=== PATIENT | female | born 1945 | race Caucasian/White ===

== ENCOUNTER → 2016-11-28 | Outpatient (CLI) | payer MEDICARE ==
--- NOTE | 2016-11-30 10:05 | MM ---
Reason for exam: screening (asymptomatic). Last mammogram was performed 1 year and 3 months ago. History: Patient is postmenopausal. Family history of breast cancer in aunt at age 50. Physical Findings: A clinical breast exam by your physician is recommended on an annual basis and results should be correlated with mammographic findings. MG 3D Screening Mammo W/Cad Bilateral CC and MLO view(s) were taken. Prior study comparison: September 03, 2015, bilateral MG 3d screening mammo w/cad. July 13, 2014, bilateral MG screening mammo w CAD. May 30, 2013, bilateral digital screening mammo w/CAD. There are scattered fibroglandular densities. No significant changes when compared with prior studies. ASSESSMENT: Benign, BI-RAD 2 RECOMMENDATION: Routine screening mammogram of both breasts in 1 year.
== END | disposition home or self-care (01) ==
LOC: RADMAMWWP 10:03
PROVIDERS: ATTEND Internal Medicine
DX: Z12.31 Encounter for screening mammogram for malignant neoplasm of breast (principal)
CPT/HCPCS: 77063; G0202

== ENCOUNTER → 2016-11-28 | Outpatient (CLI) | payer MEDICARE ==
[2016-11-28 10:56] LABS: CH 28.5; CHCM 31.6; HCT 39.4 % (34.0-46.0); HDW 2.43; HGB 12.4 gm/dL (11.4-16.0); MCH 28.4 pg (25.0-35.0); MCHC 31.4 g/dL (31.0-37.0); MCV 90.4 fL (80.0-100.0); Mean Platelet Volume 7.2; RBC 4.36 m/uL (3.80-5.40); RDW 14.5 % (11.5-15.5); WBC 4.5 k/uL (3.8-10.6)
[2016-11-28 11:19] LABS: Anion Gap 11 mmol/L; Blood Urea Nitrogen 16 mg/dL (7-17); Calcium 9.1 mg/dL (8.4-10.2); Carbon Dioxide 28 mmol/L (22-30); Chloride 103 mmol/L (98-107); Glucose 91 mg/dL (74-99); Non-African American GFR(MDRD) >60 (>60 ml/min/1.73 sqM); Sodium 142 mmol/L (137-145)
== END | disposition home or self-care (01) ==
LOC: LABWHC1 10:22
PROVIDERS: ATTEND Internal Medicine Cardiovascular Disease
DX: E78.00 Pure hypercholesterolemia, unspecified (principal); E03.9 Hypothyroidism, unspecified; R60.0 Localized edema; R53.83 Other fatigue
CPT/HCPCS: 36415; 80048; 84436; 84439; 84443; 84481; 85027

== ENCOUNTER → 2017-04-10 | Outpatient (CLI) | payer MEDICARE ==
[2017-04-10 12:54] LABS: ALT 31 U/L (9-52); AST 21 U/L (14-36); Alkaline Phosphatase 59 U/L (38-126); Anion Gap 9 mmol/L; Blood Urea Nitrogen 17 mg/dL (7-17); Calcium 9.7 mg/dL (8.4-10.2); Carbon Dioxide 31 mmol/L (22-30); Chloride 101 mmol/L (98-107); Glucose 92 mg/dL (74-99); Sodium 141 mmol/L (137-145); Total Bilirubin 0.6 mg/dL (0.2-1.3); Total Protein 6.4 g/dL (6.3-8.2)
[2017-04-10 12:57] LABS: HCT 39.8 % (34.0-46.0); HGB 12.5 gm/dL (11.4-16.0); MCH 28.5 pg (25.0-35.0); MCHC 31.5 g/dL (31.0-37.0); MCV 90.3 fL (80.0-100.0); Mean Platelet Volume 6.7; Platelet Count 277 k/uL (150-450); WBC 4.9 k/uL (3.8-10.6)
== END | disposition home or self-care (01) ==
LOC: LABWHC1 11:57
PROVIDERS: ATTEND Internal Medicine Cardiovascular Disease
DX: I11.0 Hypertensive heart disease with heart failure (principal); I50.22 Chronic systolic (congestive) heart failure; I48.2 Chronic atrial fibrillation; I48.92 Unspecified atrial flutter; R00.2 Palpitations; R53.83 Other fatigue; R60.0 Localized edema; R06.02 Shortness of breath
CPT/HCPCS: 36415; 80053; 84436; 84443; 84479; 85027

== ENCOUNTER → 2017-08-09 | Outpatient (CLI) | payer MEDICARE ==
[2017-08-09 09:54] LABS: HCT 35.8 % (34.0-46.0); HGB 11.7 gm/dL (11.4-16.0); MCH 28.9 pg (25.0-35.0); MCHC 32.8 g/dL (31.0-37.0); Platelet Count 244 k/uL (150-450); RBC 4.06 m/uL (3.80-5.40); RDW 13.2 % (11.5-15.5); WBC 5.6 k/uL (3.8-10.6)
[2017-08-09 10:04] LABS: INR 2.1 (<1.2); Partial Thromboplastin Time 28.7 sec (22.0-30.0); Prothrombin Time 19.3 sec (9.0-12.0)
[2017-08-09 10:40] LABS: Calcium 9.3 mg/dL (8.4-10.2); Potassium 3.8 mmol/L (3.5-5.1)
== END | disposition home or self-care (01) ==
LOC: LABWHC1 09:17
PROVIDERS: ATTEND Internal Medicine Cardiovascular Disease
DX: I48.0 Paroxysmal atrial fibrillation (principal); I50.22 Chronic systolic (congestive) heart failure; E78.00 Pure hypercholesterolemia, unspecified
CPT/HCPCS: 36415; 80048; 85027; 85610; 85730

== ENCOUNTER → 2017-12-03 | Outpatient (CLI) | payer MEDICARE ==
--- NOTE | 2017-12-05 10:13 | MM ---
Reason for exam: screening (asymptomatic). Last mammogram was performed 1 year ago. History: Patient is postmenopausal. Family history of breast cancer in aunt at age 50. Physical Findings: A clinical breast exam by your physician is recommended on an annual basis and results should be correlated with mammographic findings. MG 3D Screening Mammo W/Cad Bilateral CC and MLO view(s) were taken. Prior study comparison: November 28, 2016, bilateral MG 3d screening mammo w/cad. September 03, 2015, bilateral MG 3d screening mammo w/cad. There are scattered fibroglandular densities. Benign bilateral secretory calcifications. No significant changes when compared with prior studies. ASSESSMENT: Benign, BI-RAD 2 RECOMMENDATION: Routine screening mammogram of both breasts in 1 year.
== END | disposition home or self-care (01) ==
LOC: RADMAMWWP 13:00
PROVIDERS: ATTEND Internal Medicine
DX: Z12.31 Encounter for screening mammogram for malignant neoplasm of breast (principal)
CPT/HCPCS: 77063; 77067

== ENCOUNTER → 2018-06-25 | Outpatient (CLI) | payer MEDICARE ==
[2018-06-25 17:06] LABS: Albumin 4.7 g/dL (3.80-4.90); Albumin/Globulin Ratio 2.35 (1.60-3.17); Anion Gap 9.2 mmol/L (4.00-12.00); Calcium 9.8 mg/dL (8.7-10.3); Carbon Dioxide 28.8 mmol/L (21.6-31.8); Potassium 4.4 mmol/L (3.5-5.5); Total Bilirubin 0.5 mg/dL (0.3-1.2); Total Protein 6.7 g/dL (6.2-8.2)
== END | disposition home or self-care (01) ==
LOC: LABWHC1 11:13
PROVIDERS: ATTEND Internal Medicine Interventional Cardiology
DX: E78.00 Pure hypercholesterolemia, unspecified (principal); R60.0 Localized edema
CPT/HCPCS: 36415; 80053; 80061

== ENCOUNTER → 2018-10-22 | Outpatient (CLI) | payer MEDICARE ==
[2018-10-22 11:13] LABS: HCT 32.1 % (34.0-46.0); HGB 9.8 gm/dL (11.4-16.0); Hypochromasia Marked; MCHC 30.6 g/dL (31.0-37.0); MCV 84.7 fL (80.0-100.0); Mean Platelet Volume 7.5; Platelet Count 267 k/uL (150-450); RBC 3.78 m/uL (3.80-5.40); RDW 14.7 % (11.5-15.5); WBC 5.2 k/uL (3.8-10.6)
[2018-10-22 17:22] LABS: Anion Gap 10.4 mmol/L (4.00-12.00); BUN/Creat Ratio 12.5 Ratio (12.00-20.00); Calcium 8.7 mg/dL (8.7-10.3); Carbon Dioxide 25.6 mmol/L (21.6-31.8); Potassium 4.3 mmol/L (3.5-5.5)
== END | disposition home or self-care (01) ==
LOC: LABWHC1 10:35
PROVIDERS: ATTEND Internal Medicine Cardiovascular Disease
DX: I11.0 Hypertensive heart disease with heart failure (principal); I50.9 Heart failure, unspecified; I48.0 Paroxysmal atrial fibrillation; E78.00 Pure hypercholesterolemia, unspecified; I42.8 Other cardiomyopathies; R06.02 Shortness of breath
CPT/HCPCS: 36415; 80048; 83880; 85027

== ENCOUNTER → 2020-06-29 | Outpatient (CLI) | payer MEDICARE ==
--- NOTE | 2020-06-30 13:43 | MM ---
Reason for exam: screening (asymptomatic). Last mammogram was performed 2 years and 7 months ago. History: Patient is postmenopausal. Family history of breast cancer in aunt at age 50. Physical Findings: A clinical breast exam by your physician is recommended on an annual basis and results should be correlated with mammographic findings. MG 3D Screening Mammo W/Cad Bilateral CC and MLO view(s) were taken. Prior study comparison: December 03, 2017, bilateral MG 3d screening mammo w/cad. November 28, 2016, bilateral MG 3d screening mammo w/cad. There are scattered fibroglandular densities. Loop recorder left breast. No significant changes when compared with prior studies. ASSESSMENT: Benign, BI-RAD 2 RECOMMENDATION: Routine screening mammogram of both breasts in 1 year.
== END ==
LOC: RADMAMWWP 15:22
PROVIDERS: ATTEND Internal Medicine
DX: Z12.31 Encounter for screening mammogram for malignant neoplasm of breast (principal); Z78.0 Asymptomatic menopausal state; Z80.3 Family history of malignant neoplasm of breast
CPT/HCPCS: 77063; 77067

== ENCOUNTER → 2020-07-23 | Outpatient (CLI) | payer MEDICARE ==
--- NOTE | 2020-07-23 16:18 | CT ---
EXAMINATION TYPE: CT soft tissue neck w con DATE OF EXAM: 07/23/2020 COMPARISON: HISTORY: Left side neck lump CT DLP: 733 mGycm CONTRAST: Patient injected with 100 mL of Isovue 300. TECHNIQUE: Axial images at 3 mm thick sections. Reconstructed images in the coronal plane and sagitt al plane are reviewed. FINDINGS: Limited CT sections are obtained the lung apices. The lung apices appear clear. CT neck: The torus tubarius and fossa of Rosenmuller are normal. Staff Training And Development Manager spaces are normal. Para nasal sinuses and mastoid air cells are clear. Parotid glands appear normal and symmetrical. Submandibular glands, are normal. Parapharyngeal spac es are normal. No suspicious adenopathy is evident. Right internal carotid artery is a medial course into the prevertebral space on the right is causing some displacement of the posterior soft tissues. Tonsillar pillars appear normal The hypopharynx appears within normal limits. Vocal cord level appear symmetrical. Small portion of Thyroid as visualized is normal. Degenerative disc changes are present throughout the cervical spine. Some spondylosis is present. Tem poromandibular junctions appear within normal limits. Remarks lower left neck. This is at the level of the lower sternocleidomastoid muscle. No underlying masses are evident. No suspicious adenopathy is at this level. IMPRESSIONS: 1. No suspicious abnormality to account for palpable area. 2. Incidental note is made of medial course of the right internal carotid artery to nearly the midlin e.
== END | disposition home or self-care (01) ==
LOC: RADCTMAIN 11:58
PROVIDERS: ATTEND Internal Medicine
DX: R22.1 Localized swelling, mass and lump, neck (principal)
CPT/HCPCS: 82565; 84520; 70491; 36415; Q9967

== ENCOUNTER → 2022-03-14 | Outpatient (CLI) | payer MEDICARE ==
--- NOTE | 2022-03-15 10:24 | MM ---
Reason for Exam: Screening (asymptomatic). Last mammogram was performed 1 year(s) and 9 month(s) ago. Patient History: Menarche at age 14. First Full-Term at age 23. Postmenopausal. Maternal aunt had breast cancer, age 50. Risk Values: Jade 5 year model risk: 1.6%. NCI Lifetime model risk: 3.7%. Prior Study Comparison: 11/28/2016 Bilateral Screening Mammogram, [facility]. 12/03/2017 Bilateral Screening Mammogram, [facility]. 06/29/2020 Bilateral Screening Mammogram, [facility]. Tissue Density: There are scattered fibroglandular densities. Findings: Analyzed By CAD. Persistent loop recorder in the posterior left breast. Persistent tiny round and linear calcifications greatest anteriorly in the bilateral breasts and more numerous in the right breast. There is no suspicious new group of microcalcifications or new suspicious mass in either breast. Overall Assessment: Benign, BI-RAD 2 Management: Screening Mammogram of both breasts in 1 year. A clinical breast exam by your physician is recommended on an annual basis and results should be correlated with mammographic findings. Electronically signed and approved by: Ray Giles M.D.
== END | disposition home or self-care (01) ==
LOC: RADMAMWWP 13:28
PROVIDERS: ATTEND Internal Medicine
DX: Z12.31 Encounter for screening mammogram for malignant neoplasm of breast (principal); Z78.0 Asymptomatic menopausal state; Z80.3 Family history of malignant neoplasm of breast
CPT/HCPCS: 77063; 77067

== ENCOUNTER → 2023-08-17 | Outpatient (CLI) | payer MEDICARE ==
[2023-08-17 19:07] LABS: Basophils # (A) 0.04 X 10*3/uL (0.00-0.10); Basophils % (A) 1.1 %; Eosinophils # (A) 0.15 X 10*3/uL (0.04-0.35); Eosinophils % (A) 4.3 %; HCT 29.9 % (37.2-46.3); HGB 8.3 g/dL (12.0-15.0); Lymphocytes % (A) 25.9 %; MCH 21.4 pg (27.0-32.0); MCHC 27.8 g/dL (32.0-37.0); MCV 77.1 FL (80.0-97.0); Mean Platelet Volume 9.2 FL (9.5-12.2); Monocytes # (A) 0.28 X 10*3/uL (0.20-1.00); NRBC Per 100 WBC 0 X 10*3/uL (0.00-0.01); Neutrophils # (A) 2.09 X 10*3/uL (1.80-7.70); Neutrophils % (A) 60.1 %; Platelet Count 310 X 10*3/uL (140-440); RBC 3.88 X 10*6/uL (4.10-5.20); RDW 17.2 % (11.5-14.5); WBC 3.48 X 10*3/uL (4.50-10.00)
[2023-08-17 21:14] LABS: ALT 13 U/L (8-44); AST 20 U/L (13-35); Albumin 4.4 g/dL (3.8-4.9); Albumin/Globulin Ratio 1.91 Ratio (1.60-3.17); Alkaline Phosphatase 56 U/L (41-126); BUN/Creat Ratio 16.78 Ratio (12.00-20.00); Blood Urea Nitrogen 15.1 mg/dL (9.0-27.0); Calcium 9.4 mg/dL (8.7-10.3); Carbon Dioxide 27.3 mmol/L (21.6-31.8); Chloride 99 mmol/L (96-109); Chol/HDL Ratio 1.97 Ratio; Globulin 2.3 g/dL (1.6-3.3); Glucose 93 mg/dL (70-110); LDL Cholesterol,Calculated 66.9 mg/dL (0.0-131.0); Potassium 4.6 mmol/L (3.5-5.5); Sodium 137 mmol/L (135-145); T4, Free (Free Thyroxine) 1.54 ng/dL (0.80-1.80); Total Bilirubin 0.3 mg/dL (0.3-1.2); Total Protein 6.7 g/dL (6.2-8.2); VLDL Calculation 14.34 mg/dL (5.00-40.00)
== END | disposition home or self-care (01) ==
LOC: LABWHC1 11:27
PROVIDERS: ATTEND Internal Medicine Cardiovascular Disease
DX: I48.0 Paroxysmal atrial fibrillation (principal)
CPT/HCPCS: 36415; 80053; 80061; 84439; 84443; 84480; 84481; 85025

== ENCOUNTER → 2024-04-16 | Outpatient (CLI) | payer MEDICARE ==
--- NOTE | 2024-04-16 12:41 | US ---
EXAMINATION TYPE: US kidneys/renal and bladder DATE OF EXAM: 04/16/2024 COMPARISON: NONE CLINICAL INDICATION: Female, 78 years old with history of R31.9 HEMATURIA, UNSPECIFIED; Hematuria TECHNIQUE: Grayscale imaging of the bilateral kidneys and urinary bladder: FINDINGS: EXAM MEASUREMENTS: Right Kidney: 11.6 x 4.7 x 4.0 cm Left Kidney: 11.4 x 4.7 x 5.2 cm Wine Fermenter notes: Exam is slightly limited due to gas. Right Kidney: No hydronephrosis or masses seen Left Kidney: No hydronephrosis or masses seen Bladder: Partially distended bladder shows no gross abnormality. Bilateral Jets seen: Yes IMPRESSION: No hydronephrosis. [facility], Workstation: [email or web address], 04/16/2024 12:39 PM
--- NOTE | 2024-04-16 12:50 | US ---
EXAMINATION TYPE: US pelvis complete transvag DATE OF EXAM: 04/16/2024 COMPARISON: NONE CLINICAL INDICATION: Female, 78 years old with history of R31.9 HEMATURIA, UNSPECIFIED; Possible vagi nal bleeding. Called office, and confirmed they want the pelvis ultrasound due to vaginal bleeding. G 2 P2. TECHNIQUE: Transvaginal (TV) and Transabdominal (TA) . Transabdominal grayscale sonographic images of the pelvis were acquired. Transvaginal sonographic im ages were medically necessary to better assess the following anatomy: ovaries Doppler imaging: Not performed. FINDINGS: Date of LMP: Pt states in her 40s. EXAM MEASUREMENTS: Uterus: 4.0 x 3.1 x 2.4 cm Endometrial Stripe: 0.32 cm Right Ovary: Obscured by bowel gas Left Ovary: Obscured by bowel gas 1. Uterus: Anteverted Heterogeneous. *Subcentimeter anechoic area seen in cervix. There is some heterogeneity in the region of the cervix along with a nabothian cyst measuring up to 6 mm. Punctate myometrial calcification anteriorly. This may reflect underlying small fibroid change. 2. Endometrium: 0.32 cm. Anechoic fluid seen within the uterine cavity measuring 1.0 x 1.3 x 0.5 c m. 3. Right Ovary: Obscured 4. Left Ovary: Obscured 5. Bilateral Adnexa: Appear wnl 6. Posterior cul-de-sac: Prominent vessel noted left adnexa questionable clinical significance IMPRESSION: 1. Endometrial stripe appears relatively thin at 3 mm. However, there is fluid distending the uterine cavity up to 5 mm. Correlate to exclude cervical stenosis. 2. Consider further evaluation with direct inspection/Pap smear given some heterogeneous appearance t o the cervix. 3. Unable to visualize either ovary likely a combination of bowel gas and small postmenopausal size. [facility], , 04/16/2024 12:47 PM
== END | disposition home or self-care (01) ==
LOC: RADUSWWP 11:32
PROVIDERS: ATTEND Internal Medicine
DX: R31.9 Hematuria, unspecified (principal); N93.9 Abnormal uterine and vaginal bleeding, unspecified
CPT/HCPCS: 76770; 76830; 76856

== ENCOUNTER → 2024-10-09 | Outpatient (CLI) | payer MEDICARE ==
[2024-10-09 13:37] VITALS: PULSE 70; RESP 16; TEMP 97.9
[2024-10-09 13:39] VITALS: BP 137/76
--- NOTE | 2024-10-09 14:02 | P.SLEEP ---
History of Present Illness DATE: 10/09/2024 CONSULTATION/NEW PATIENT EVALUATION HISTORY OF PRESENT ILLNESS/SLEEP-WAKE EVALUATION: 79-year-old lady had been ev aluated in the sleep center for possible obstructive sleep apnea hypopnea syndrome. Patient has history of obstructive sleep apnea diagnosed about 15 years ago in another institution she was on treatment with CPAP but stopped therapy for different reason about 10 years ago. SLEEP SCHEDULE: Usually sleep schedule from 1112 until 9 AM 7 days a week. FALLING ASLEEP: Patient has difficulties with falling asleep, has TV set in bedroom. DURING SLEEP: Patient sleeps on the back and side position with loud snoring and witnessed episodes of stop breathing during the sleep. Positive history of res tless leg symptoms, sweating, dry mouth, palpitations, nocturia. No history of hypnogogical hallucinations, sleep paralysis, or cataplexy. DURING THE DAY/WAKE STATE: In the morning patient wake up tired, has difficulties to pay attention, has problems with memory, concentration, depression. [place] sleepiness scale is increased to 13. Patient takes nap at 3:30 PM. PAST MEDICAL HISTORY: Atrial flutter, hypertension, dyslipidemia, COPD, hypothyroidism. []. PAST SURGICAL HISTORY: Cardiac ablation. MEDICATIONS: Levothyroxine 150 mcg once a day, propafenone 150 mg once a day, pantoprazole 40 mg once a day, ropinirole 2 mg once a day, warfarin 2.5 mg once a day, simvastatin 40 mg once a day, gabapentin 300 mg once a day, Symbicort, Ventolin. SOCIAL HISTORY: Please see below. FAMILY HISTORY: Please see below. REVIEW OF SYSTEMS: Snoring, sleepiness. No fevers. No double vision. No recent chest pain. No shortness of breath. No abdominal pain. No bleeding episodes. No blood in urine. No seizure episodes. PHYSICAL EXAMINATION: GENERAL: A pleasant patient without any distress. VITAL SIGNS: Please see below, weight 166 pounds, BMI 31.3. HEENT: PERRLA, EOMI. Evaluation of oropharynx showed tongue protrudes midline, low position of soft palate Mallampati 3. NECK: Supple. No JVD. Thyroid is not palpable. 14.5 inches in circumference. LUNGS: Clear to percussion and to auscultation. Good air exchange. No wheezing or rhonchi. HEART: S1, S2 irregular. ABDOMEN: Soft and nontender. Bowel sounds are present. No organomegaly appreciated. EXTREMITIES: No clubbing or cyanosis. ASSOCIATE JAVA DEVELOPER: Awake, alert, and oriented x3. Cranial nerves 2 to 7 intact. There is no fasciculation or atrophy noted. No focal deficits observed. ASSESSMENT: 1. Loud snoring, witnessed episodes of stop breathing during the sleep, low position of soft palate Mallampati 3, history of obstructive sleep apnea in the past, sleepiness with [place] Sleepiness Scale increased to 13. Obstructive sleep apnea hypopnea syndrome. 2. Hypertension. 3. Atrial flutter, status post cardiac ablation. 4. COPD. 5. Dyslipidemia. 6 . Hypothyroidism. PLAN: 1. Polysomnography for evaluation of patient's breathing during sleep. 2. Following plan after reading sleep study. 3. Preferable position during sleep on the side. 4. No driving if patient feels any sleepiness. Patient is aware of civil and criminal liability for unsafe driving. 5. Sleep hygiene with regular sleep time for at least 7.5-8 hours. 6. Watching weight. Thank you very much for referring this patient for consultation. Sincerely, Pankaj Sandhu MD, PhD, FAASM. Diplomat of [place] [employer], Sleep Medicine Board by [place] [employer] [place] [employer] [facility] [place] cc: Luke Srinivasan MD, Homar Castro MD Past Medical History Past Medical History: Atrial Fibrillation, COPD, GERD/Reflux, Hyperlipidemia, Sleep Apnea/CPAP/BIPAP, Thyroid Disorder Additional Past Medical History / Comment(s): Restless leg syndrome. RESPIRATORY INFECTION ON AND OFF SINCE GIVING- 3 COURSES OF ANTIBIOTICS AND STEROIDS History of Any Multi-Drug Resistant Organisms: None Reported Past Surgical History: Cardiac Ablation, Heart Catheterization, Hernia Repair, Tonsillectomy Additional Past Surgical History / Comment(s): colonoscopy Past Anesthesia/Blood Transfusion Reactions: No Reported Reaction Past Psychological History: No Psychological Hx Reported Smoking Status: Former smoker Past Alcohol Use History: Rare Additional Past Alcohol Use History / Comment(s): quit smokng 1987 Past Drug Use History: None Reported - Past Family History Father Family Medical History: Cancer, Coronary Artery Disease (CAD) Mother Family Medical History: Cancer, Coronary Artery Disease (CAD) Additional Family Medical History / Comment(s): lung problems Medications and Allergies Home Medications Medication Instructions Recorded Confirmed Type Baclofen [Lioresal] 20 mg PO HS 06/02/14 07/09/15 History Budesonide-Formot 160-4.5 Mcg 2 puff INHALATION RT-BID 06/02/14 07/09/15 History [Symbicort 160-4.5 Mcg Inhaler] Cholecalciferol [Vitamin D3 (25 2,000 unit PO DAILY 06/02/14 07/09/15 History Mcg = 1000 Iu)] Ferrous Sulfate [Iron (65 MG 325 mg PO DAILY 06/02/14 07/09/15 History Elemental)] Gabapentin [Neurontin] 100 mg PO HS 06/02/14 07/09/15 History Levothyroxine Sodium [Synthroid] 137 mcg PO DAILY 06/02/14 07/09/15 History Omeprazole [PriLOSEC] 20 mg PO AC-BRKFST 06/02/14 07/09/15 History Simvastatin [Zocor] 40 mg PO HS 06/02/14 07/09/15 History rOPINIRole HCL [Requip] 1 mg PO TID@1100,2100,2200 06/02/14 07/09/15 History Spironolactone [Aldactone] 12.5 mg PO DAILY #30 tab 06/17/15 07/09/15 Rx Ipratropium Nebulized [Atrovent 0.5 mg INHALATION RT-QID@1200,0000 07/09/15 07/09/15 History Nebulized 0.2 MG/ML] Warfarin Sodium [Coumadin] 2 mg PO MOWEFR@1800 07/09/15 07/09/15 History Warfarin Sodium [Coumadin] 4 mg PO SUTUTHSA@1800 07/09/15 07/09/15 History levalbuterol HCL [Xopenex] 1.25 mg INHALATION RT-QID 07/09/15 07/09/15 History Amiodarone [Cordarone] 200 mg PO TID #90 tab 07/16/15 Rx Furosemide [Lasix] 20 mg PO DAILY #30 tab 07/16/15 Rx Metoprolol Tartrate [Lopressor] 50 mg PO TID #90 tab 07/16/15 Rx Verapamil [Isoptin] 120 mg PO TID #90 tab 07/16/15 Rx predniSONE 10 mg PO DIRECTED #20 tab 07/16/15 Rx Allergies Allergy/AdvReac Type Severity Reaction Status Date / Time No Known Allergies Allergy Verified 07/09/15 13:52 Physical Exam Vitals: Vital Signs Temp Pulse Resp BP Pulse Ox 10/09/24 13:37 97.9 F 70 16 137/76 97 10/09/24 13:33 97.9 F 70 16 Intake and Output 10/08/24 10/09/24 10/09/24 22:59 06:59 14:59 Other: Weight 75.296 kg Sleep Note - Sleep Data ESS Total: 13 - Sleep Note Sleep Note: Temperature: 97.9 F Pulse Rate: 70 Respiratory Rate: 16 Blood Pressure: 137/76 SpO2: 97 Height: 5 ft 1 in Weight: 75.296 kg BMI: Neck Circumference: 14.5
== END ==
LOC: 3 N SLEEP 13:07
PROVIDERS: ATTEND Internal Medicine
DX: G47.33 Obstructive sleep apnea (adult) (pediatric) (principal); I10 Essential (primary) hypertension; I48.92 Unspecified atrial flutter; J44.9 Chronic obstructive pulmonary disease, unspecified; E78.5 Hyperlipidemia, unspecified; E03.9 Hypothyroidism, unspecified; Z98.890 Other specified postprocedural states; Z87.891 Personal history of nicotine dependence
CPT/HCPCS: 99211

== ENCOUNTER 2024-10-27 17:38 | Observation (INO) | payer MEDICARE ==
--- NOTE | 2024-10-27 18:18 | ED ---
Recheck HPI - General Chief Complaint: Recheck/Abnormal Lab/Rx Stated Complaint: Infusion Time Seen by Provider: 10/27/24 18:16 Source: patient, RN notes reviewed, old records reviewed Mode of arrival: ambulatory Limitations: no limitations - History of Present Illness Initial Comments: This is a 79-year-old female who presents for low hemoglobin outpatient lab testing showing low hemoglobin with history of transfusion in the past history of low hemoglobin in the past. Patient denies any nausea vomiting denies vaginal bleeding and denies blood in the stool MD Complaint: abnormal lab (Low hemoglobin) -: days(s) Returns Today for: Called Because of Abnormal Lab/Test Context: called for abnormal lab result Associated Symptoms: none Treatments Prior to Arrival: other - Related Data Home Medications Medication Instructions Recorded Confirmed Budesonide-Formot 160-4.5 Mcg 2 puff INHALATION RT-BID 06/02/14 10/27/24 [Symbicort 160-4.5 Mcg Inhaler] Simvastatin [Zocor] 40 mg PO HS 06/02/14 10/27/24 Albuterol Inhaler [Ventolin Hfa 2 puff INHALATION RT-Q4H PRN 10/27/24 10/27/24 Inhaler] Bumetanide [BUMEX] 2 mg PO DAILY 10/27/24 10/29/24 Gabapentin [Neurontin] 300 mg PO HS 10/27/24 10/27/24 Pantoprazole [Protonix] 40 mg PO DAILY 10/27/24 10/27/24 Propafenone HCl [Rythmol ER] 325 mg PO Q12H 10/27/24 10/27/24 Spironolactone [Aldactone] 25 mg PO DAILY 10/27/24 10/27/24 Warfarin [Coumadin] 2.5 mg PO HS 10/27/24 10/27/24 rOPINIRole HCL [Requip] 2 mg PO TID 10/27/24 10/27/24 Levothyroxine Sodium [Synthroid] 175 mcg PO DAILY 10/29/24 10/29/24 Allergies Allergy/AdvReac Type Severity Reaction Status Date / Time No Known Allergies Allergy Verified 07/09/15 13:52 Review of Systems ROS Statement: Those systems with pertinent positive or pertinent negative responses have been documented in the HPI. ROS Other: All systems not noted in ROS Statement are negative. Past Medical History Past Medical History: Atrial Fibrillation, COPD, GERD/Reflux, Hyperlipidemia, Sleep Apnea/CPAP/BIPAP, Thyroid Disorder Additional Past Medical History / Comment(s): Restless leg syndrome. RESPIRATORY INFECTION ON AND OFF SINCE THANKSGI- 3 COURSES OF ANTIBIOTICS AND STEROIDS History of Any Multi-Drug Resistant Organisms: None Reported Past Surgical History: Cardiac Ablation, Heart Catheterization, Hernia Repair, Tonsillectomy Additional Past Surgical History / Comment(s): colonoscopy Past Anesthesia/Blood Transfusion Reactions: No Reported Reaction Past Psychological History: No Psychological Hx Reported Smoking Status: Former smoker Past Alcohol Use History: Rare Past Drug Use History: None Reported - Past Family History Father Family Medical History: Cancer, Coronary Artery Disease (CAD) Mother Family Medical History: Cancer, Coronary Artery Disease (CAD) Additional Family Medical History / Comment(s): lung problems General Exam Limitations: no limitations General appearance: alert, in no apparent distress Head exam: Present: atraumatic, normocephalic, normal inspection Eye exam: Present: normal appearance, PERRL, EOMI. Absent: scleral icterus, conjunctival injection, periorbital swelling ENT exam: Present: normal exam, mucous membranes moist Neck exam: Present: normal inspection. Absent: tenderness, meningismus, lymphadenopathy Respiratory exam: Present: normal lung sounds bilaterally. Absent: respiratory distress, wheezes, rales, rhonchi, stridor Cardiovascular Exam: Present: regular rate, normal rhythm, normal heart sounds. Absent: systolic murmur, diastolic murmur, rubs, gallop, clicks GI/Abdominal exam: Present: soft, normal bowel sounds. Absent: distended, tenderness, guarding, rebound, rigid Extremities exam: Present: normal inspection, full ROM, normal capillary refill. Absent: tenderness, pedal edema, joint swelling, calf tenderness Back exam: Present: normal inspection Neurological exam: Present: alert, oriented X3, CN II-XII intact Psychiatric exam: Present: normal affect, normal mood Skin exam: Present: warm, dry, intact, normal color. Absent: rash Course Vital Signs 10/27/24 10/27/24 10/27/24 17:53 18:57 20:14 Temperature 98.2 F Pulse Rate 84 69 65 Respiratory 18 20 18 Rate Blood Pressure 121/70 125/68 143/86 O2 Sat by Pulse 97 96 96 Oximetry 0710/27/24 10/27/24 20:28 20:38 20:58 Temperature 97.9 F 98.0 F 98.2 F Pulse Rate 70 78 80 Respiratory 16 16 18 Rate Blood Pressure 140/76 142/72 150/90 O2 Sat by Pulse 95 93 L 93 L Oximetry 10/27/24 10/27/24 10/27/24 22:26 23:12 23:22 Temperature 98.6 F 98.6 F Pulse Rate 80 71 74 Respiratory 16 16 18 Rate Blood Pressure 150/87 134/73 126/91 O2 Sat by Pulse 97 91 L 99 Oximetry 10/27/24 10/27/24 10/28/24 23:32 23:52 01:39 Temperature 98.2 F 98.3 F 98.4 F Pulse Rate 59 L 65 70 Respiratory 16 16 16 Rate Blood Pressure 140/78 137/79 132/86 O2 Sat by Pulse 93 L 93 L 91 L Oximetry 10/28/24 10/28/24 03:20 06:08 Temperature 98.4 F 97.8 F Pulse Rate 71 76 Respiratory 16 16 Rate Blood Pressure 152/78 138/78 O2 Sat by Pulse 96 95 Oximetry - Reevaluation(s) Reevaluation #1: 10/27/24 19:11 Medical records reviewed Reevaluation #2: 10/27/24 19:12 Patient has no acute symptoms Reevaluation #3: 10/27/24 19:12 Patient informed of results questions answered Reevaluation #4: Was pt. sent in by a medical professional or institution (, PA, WORKCELL OPERATOR, urgent care, hospital, or halfway...) When possible be specific @ -no Did you speak to anyone other than the patient for history (EMS, parent, family, police, friend...)? What history was obtained from this source @ -no Did you review nursing and triage notes (agree or disagree)? Why? @ -agree Are old charts reviewed (outside hosp., previous admission, EMS record, old EKG, old radiological studies, urgent care reports/EKG's, halfway records)? Report findings @ -yes Differential Diagnosis (chest pain, altered mental status, abdominal pain women, abdominal pain men, vaginal bleeding, weakness, fever, dyspnea, syncope, he adache, dizziness, GI bleed, back pain, seizure, CVA, palpatations, mental health, musculoskeletal)? @ -prior EKG interpreted by me (3pts min.). @ -no X-rays interpreted by me (1pt min.). @ -no CT interpreted by me (1pt min.). @ -no U/S interpreted by me (1pt. min.). @ -no What testing was considered but not performed or refused? (CT, X-rays, U/S, labs)? Why? @ -none What meds were considered but not given or refused? Why? @ -none Did you discuss the management of the patient with other professionals (professionals i.e. , PA, WORKCELL OPERATOR, lab, RT, psych nurse, executive secretary social welfare, track repair person, teacher, information management officer, employment evaluator/case manager)? Give summary @ -no Was smoking cessation discussed for >3mins.? @ -no Was critical care preformed (if so, how long)? @ -no Were there social determinants of health that impacted care today? How? (Homelessness, low income, unemployed, alcoholism, drug addiction, tra nsportation, low edu. Level, literacy, decrease access to med. care, senior care, rehab)? @ -none Was there de-escalation of care discussed even if they declined (Discuss DNR or withdrawal of care, Hospice)? DNR status @ -no What co-morbidities impacted this encounter? (DM, HTN, Smoking, COPD, CAD, Cance r, CVA, ARF, Chemo, Hep., AIDS, mental health diagnosis, sleep apnea, morbid obesity)? @ -none Was patient admitted / discharged? Hospital course, mention meds given and route, prescriptions, significant lab abnormalities, going to OR and other pertinent info. @ - 79 female with history of anemia known history of anemia no active GI bleed, patient will admit for transfusion symptoms or weakness Admitted Undiagnosed new problem with uncertain prognosis? @ -no Drug Therapy requiring intensive monitoring for toxicity (Heparin, Nitro, Insulin, Cardizem)? @ -no Were any procedures done? @ -no Diagnosis/symptom? @ -Anemia Acute, or Chronic, or Acute on Chronic? @ -Acute Uncomplicated (without systemic symptoms) or Complicated (systemic symptoms)? @ -Complicated Side effects of treatment? @ -no Exacerbation, Progression, or Severe Exacerbation? @ -exacerbation Poses a threat to life or bodily function? How? (Chest pain, [place], [place], pneumonia, PE, COPD, DKA, ARF, appy, cholecystitis, CVA, Diverticulitis, Homicidal, Suicidal, threat to staff... and all critical care pts) @ -yes severe anemia extremes of age - Consultations Consultation #1: Spoke with Dr. Srinivasan who agrees to admit this patient Medical Decision Making - Medical Decision Making 79 female with history of anemia known history of anemia no active GI bleed, patient will admit for transfusion symptoms or weakness - Lab Data Result diagrams: 10/29/24 06:44 10/29/24 06:44 Lab Results 10/27/24 10/27/24 10/27/24 Range/Units 11:02 18:00 18:05 WBC (4.50-10.00) 10*3/uL RBC (4.10-5.20) 10*6/uL Hgb (12.0-15.0) g/dL Hct (37.2-46.3) % MCV (80.0-97.0) fL MCH (27.0-32.0) pg MCHC (32.0-37.0) g/dL Plt Count (140-440) 10*3/uL MPV (9.5-12.2) fL Immature Gran % (Auto) % Neutrophils % % Lymphocytes % % Monocytes % % Eosinophils % % Basophils % % Immature Gran # (0.00-0.04) 10*3/uL Neutrophils # (1.80-7.70) 10*3/uL Lymphocytes # (0.90-5.00) 10*3/uL Monocytes # (0.20-1.00) 10*3/uL Eosinophils # (0.04-0.35) 10*3/uL Basophils # (0.00-0.10) 10*3/uL PT (10.0-12.5) sec INR (<1.2) Sodium (137-145) mmol/L Potassium (3.5-5.1) mmol/L Chloride (98-107) mmol/L Carbon Dioxide (22-30) mmol/L Anion Gap mmol/L BUN (7-17) mg/dL Creatinine (0.52-1.04) mg/dL Est GFR (CKD-EPI)AfAm (>60 ml/min/1.73 sqM) Est GFR (CKD-EPI)NonAf (>60 ml/min/1.73 sqM) Glucose (74-99) mg/dL Calcium (8.4-10.2) mg/dL Phosphorus (2.5-4.5) mg/dL Magnesium (1.6-2.3) mg/dL Iron 121 (50-170) UG/DL TIBC 484 H (228-460) UG/DL % Saturation 25.00 (12.00-45.00) Transferrin 346.0 (204.0-354.0) mg/dL Ferritin 10.8 (10.0-291.0) ng/mL Total Bilirubin (0.2-1.3) mg/dL AST (14-36) U/L ALT (4-34) U/L Alkaline Phosphatase (38-126) U/L Troponin I (0.000-0.034) ng/mL Total Protein (6.3-8.2) g/dL Albumin (3.5-5.0) g/dL Vitamin B12 387.0 (200.0-944.0) pg/mL Blood Type B Positive Blood Type Confirm B Positive Blood Type Recheck No Previous Record Bld Type Recheck Status CABO Indicated Antibody Screen NEGATIVE Crossmatch See Detail Spec Expiration Date 10/30/2024 - 230410/27/24 10/27/24 10/27/24 Range/Units 18:22 18:22 18:22 WBC 3.58 L (4.50-10.00) 10*3/uL RBC 3.24 L (4.10-5.20) 10*6/uL Hgb 6.6 L* (12.0-15.0) g/dL Hct 24.1 L (37.2-46.3) % MCV 74.4 L (80.0-97.0) fL MCH 20.4 L (27.0-32.0) pg MCHC 27.4 L (32.0-37.0) g/dL Plt Count 299 (140-440) 10*3/uL MPV 9.1 L (9.5-12.2) fL Immature Gran % (Auto) 0 % Neutrophils % 69.8 % Lymphocytes % 19.6 % Monocytes % 7.5 % Eosinophils % 2.5 % Basophils % 0.6 % Immature Gran # 0.00 (0.00-0.04) 10*3/uL Neutrophils # 2.50 (1.80-7.70) 10*3/uL Lymphocytes # 0.70 L (0.90-5.00) 10*3/uL Monocytes # 0.27 (0.20-1.00) 10*3/uL Eosinophils # 0.09 (0.04-0.35) 10*3/uL Basophils # 0.02 (0.00-0.10) 10*3/uL PT 21.3 H (10.0-12.5) sec INR 2.1 H (<1.2) Sodium 138 (137-145) mmol/L Potassium 3.8 (3.5-5.1) mmol/L Chloride 104 (98-107) mmol/L Carbon Dioxide 27 (22-30) mmol/L Anion Gap 7 mmol/L BUN 15 (7-17) mg/dL Creatinine 0.59 (0.52-1.04) mg/dL Est GFR (CKD-EPI)AfAm >90 (>60 ml/min/1.73 sqM) Est GFR (CKD-EPI)NonAf 89 (>60 ml/min/1.73 sqM) Glucose 86 (74-99) mg/dL Calcium 9.1 (8.4-10.2) mg/dL Phosphorus 3.1 (2.5-4.5) mg/dL Magnesium 1.9 (1.6-2.3) mg/dL Iron (50-170) UG/DL TIBC (228-460) UG/DL % Saturation (12.00-45.00) Transferrin (204.0-354.0) mg/dL Ferritin (10.0-291.0) ng/mL Total Bilirubin 0.5 (0.2-1.3) mg/dL AST 22 (14-36) U/L ALT 13 (4-34) U/L Alkaline Phosphatase 59 (38-126) U/L Troponin I (0.000-0.034) ng/mL Total Protein 6.2 L (6.3-8.2) g/dL Albumin 4.1 (3.5-5.0) g/dL Vitamin B12 (200.0-944.0) pg/mL Blood Type Blood Type Confirm Blood Type Recheck Bld Type Recheck Status Antibody Screen Crossmatch Spec Expiration Date 10/27/24 Range/Units 18:22 WBC (4.50-10.00) 10*3/uL RBC (4.10-5.20) 10*6/uL Hgb (12.0-15.0) g/dL Hct (37.2-46.3) % MCV (80.0-97.0) fL MCH (27.0-32.0) pg MCHC (32.0-37.0) g/dL Plt Count (140-440) 10*3/uL MPV (9.5-12.2) fL Immature Gran % (Auto) % Neutrophils % % Lymphocytes % % Monocytes % % Eosinophils % % Basophils % % Immature Gran # (0.00-0.04) 10*3/uL Neutrophils # (1.80-7.70) 10*3/uL Lymphocytes # (0.90-5.00) 10*3/uL Monocytes # (0.20-1.00) 10*3/uL Eosinophils # (0.04-0.35) 10*3/uL Basophils # (0.00-0.10) 10*3/uL PT (10.0-12.5) sec INR (<1.2) Sodium (137-145) mmol/L Potassium (3.5-5.1) mmol/L Chloride (98-107) mmol/L Carbon Dioxide (22-30) mmol/L Anion Gap mmol/L BUN (7-17) mg/dL Creatinine (0.52-1.04) mg/dL Est GFR (CKD-EPI)AfAm (>60 ml/min/1.73 sqM) Est GFR (CKD-EPI)NonAf (>60 ml/min/1.73 sqM) Glucose (74-99) mg/dL Calcium (8.4-10.2) mg/dL Phosphorus (2.5-4.5) mg/dL Magnesium (1.6-2.3) mg/dL Iron (50-170) UG/DL TIBC (228-460) UG/DL % Saturation (12.00-45.00) Transferrin (204.0-354.0) mg/dL Ferritin (10.0-291.0) ng/mL Total Bilirubin (0.2-1.3) mg/dL AST (14-36) U/L ALT (4-34) U/L Alkaline Phosphatase (38-126) U/L Troponin I <0.012 (0.000-0.034) ng/mL Total Protein (6.3-8.2) g/dL Albumin (3.5-5.0) g/dL Vitamin B12 (200.0-944.0) pg/mL Blood Type Blood Type Confirm Blood Type Recheck Bld Type Recheck Status Antibody Screen Crossmatch Spec Expiration Date Disposition Clinical Impression: Anemia, Chronic anemia Disposition: ADMITTED IP TO THIS HOSP Condition: Fair Is patient prescribed a controlled substance at d/c from ED?: No Time of Disposition: 19:00
[2024-10-27 18:32] LABS: Basophils # (A) 0.02 10*3/uL (0.00-0.10); Basophils % (A) 0.6 %; Eosinophils # (A) 0.09 10*3/uL (0.04-0.35); Eosinophils % (A) 2.5 %; HCT 24.1 % (37.2-46.3); Lymphocytes # (A) 0.70 10*3/uL (0.90-5.00); Lymphocytes % (A) 19.6 %; MCH 20.4 pg (27.0-32.0); MCHC 27.4 g/dL (32.0-37.0); MCV 74.4 fL (80.0-97.0); Monocytes # (A) 0.27 10*3/uL (0.20-1.00); Monocytes % (A) 7.5 %; Neutrophils # (A) 2.50 10*3/uL (1.80-7.70); Neutrophils % (A) 69.8 %; Platelet Count 299 10*3/uL (140-440); RBC 3.24 10*6/uL (4.10-5.20); RDW 17.7 % (11.5-14.5); WBC 3.58 10*3/uL (4.50-10.00)
[2024-10-27 18:41] LABS: ALT 13 U/L (4-34); AST 22 U/L (14-36); African American GFR (CKD) >90 (>60 ml/min/1.73 sqM); Albumin 4.1 g/dL (3.5-5.0); Alkaline Phosphatase 59 U/L (38-126); Anion Gap 7 mmol/L; Blood Urea Nitrogen 15 mg/dL (7-17); Calcium 9.1 mg/dL (8.4-10.2); Carbon Dioxide 27 mmol/L (22-30); Chloride 104 mmol/L (98-107); Glucose 86 mg/dL (74-99); Magnesium 1.9 mg/dL (1.6-2.3); Non-African American GFR(CKD) 89 (>60 ml/min/1.73 sqM); Potassium 3.8 mmol/L (3.5-5.1); Sodium 138 mmol/L (137-145); Total Protein 6.2 g/dL (6.3-8.2)
[2024-10-27 18:46] LABS: HGB 6.6 g/dL (12.0-15.0)
[2024-10-27] MEDS: SODIUM CHLORIDE 0.9% 1,000 ML IV SCH (18:54)
[2024-10-27 19:11] LABS: INR 2.1 (<1.2); Prothrombin Time 21.3 sec (10.0-12.5)
[2024-10-27] MEDS ORDERED: MORPHINE SULFATE 4 MG/ML SYRINGE IV PRN (23:53)
[2024-10-27] MEDS ORDERED: ONDANSETRON 4 MG/2 ML VIAL IVP PRN (23:53)
[2024-10-27] MEDS ORDERED: NALOXONE 0.4 MG/ML 1 ML VIAL IV PRN (23:53)
[2024-10-28 06:12] LABS: Basophils # (A) 0.04 10*3/uL (0.00-0.10); Basophils % (A) 1.1 %; Eosinophils # (A) 0.13 10*3/uL (0.04-0.35); Eosinophils % (A) 3.6 %; HCT 26.9 % (37.2-46.3); HGB 7.8 g/dL (12.0-15.0); Lymphocytes # (A) 0.85 10*3/uL (0.90-5.00); Lymphocytes % (A) 23.2 %; MCH 22.3 pg (27.0-32.0); MCHC 29.0 g/dL (32.0-37.0); MCV 76.9 fL (80.0-97.0); Monocytes # (A) 0.30 10*3/uL (0.20-1.00); Monocytes % (A) 8.2 %; Neutrophils # (A) 2.33 10*3/uL (1.80-7.70); Neutrophils % (A) 63.6 %; Platelet Count 265 10*3/uL (140-440); RBC 3.50 10*6/uL (4.10-5.20); RDW 17.2 % (11.5-14.5); WBC 3.66 10*3/uL (4.50-10.00)
[2024-10-28] MEDS: PANTOPRAZOLE 40 MG/10 ML VIAL IV SCH (09:26)
[2024-10-28] MEDS ORDERED: ALBUTEROL NEBULIZED 2.5 MG/3 ML INHALATION PRN (09:57)
[2024-10-28] MEDS: LEVOTHYROXINE 75 MCG TAB PO SCH (11:06)
[2024-10-28] MEDS: BUMETANIDE 1 MG TAB PO SCH (11:07)
[2024-10-28 11:26] LABS: INR 2.0 (<1.2); Prothrombin Time 20.4 sec (10.0-12.5)
--- NOTE | 2024-10-28 12:10 | P.HPIM ---
History of Present Illness H&P Date: 10/28/24 Nargis Smyth is a 79-year-old female patient who presented with concerns of anemia. Upon arrival patient was found to have a hemoglobin of 6.6. Patient denies any signs of bleeding. But is on Coumadin for atrial fibrillation additional medical history includes previous episode of anemia, COPD, GERD, hyperlipidemia, sleep apnea, restless leg syndrome and ex-smoker. Lab work upon arrival showing white blood cell 3.58, hemoglobin 6.6, platelet count 299, INR 2.1, creatinine 0.59 and bun 15. Patient denies any chest pain or shortness of breath. Patient denies any signs of bleeding. Patient denies nausea vomiting or diarrhea. Is any urinary burning or frequency. At this time patient will be admitted 2 units of PRBCs have been ordered. Repeat hemoglobin 7.8. Hematology and GI services have been consulted. Awaiting further recommendations. Current vital signs temp 98.5, heart 76, respiratory rate 16, blood pressure 138/78 with pulse ox of 96% on room air Review of Systems HPI otherwise unremarkable Past Medical History Past Medical History: Atrial Fibrillation, COPD, GERD/Reflux, Hyperlipidemia, Sleep Apnea/CPAP/BIPAP, Thyroid Disorder Additional Past Medical History / Comment(s): Restless leg syndrome. RESPIRATORY INFECTION ON AND OFF SINCE THANKSGIVING- 3 COURSES OF ANTIBIOTICS AND STEROIDS History of Any Multi-Drug Resistant Organisms: None Reported Past Surgical History: Cardiac Ablation, Heart Catheterization, Hernia Repair, Tonsillectomy Additional Past Surgical History / Comment(s): colonoscopy Past Anesthesia/Blood Transfusion Reactions: No Reported Reaction Past Psychological History: No Psychological Hx Reported Smoking Status: Former smoker Past Alcohol Use History: Rare Additional Past Alcohol Use History / Comment(s): quit [id number] Past Drug Use History: None Reported - Past Family History Father Family Medical History: Cancer, Coronary Artery Disease (CAD) Mother Family Medical History: Cancer, Coronary Artery Disease (CAD) Additional Family Medical History / Comment(s): lung problems Medications and Allergies Home Medications Medication Instructions Recorded Confirmed Type Budesonide-Formot 160-4.5 Mcg 2 puff INHALATION RT-BID 06/02/14 10/27/24 History [Symbicort 160-4.5 Mcg Inhaler] Simvastatin [Zocor] 40 mg PO HS 06/02/14 10/27/24 History Albuterol Inhaler [Ventolin Hfa 2 puff INHALATION RT-Q4H PRN 10/27/24 10/27/24 History Inhaler] Bumetanide [Bumex] 2 mg PO DIRECTED 10/27/24 10/27/24 History Gabapentin [Neurontin] 300 mg PO HS 10/27/24 10/27/24 History Levothyroxine Sodium [Synthroid] 150 mcg PO DAILY 10/27/24 10/27/24 History Pantoprazole [Protonix] 40 mg PO DAILY 10/27/24 10/27/24 History Propafenone HCl [Rythmol ER] 325 mg PO Q12H 10/27/24 10/27/24 History Spironolactone [Aldactone] 25 mg PO DAILY 10/27/24 10/27/24 History Warfarin [Coumadin] 2.5 mg PO HS 10/27/24 10/27/24 History rOPINIRole HCL [Requip] 2 mg PO TID 10/27/24 10/27/24 History Allergies Allergy/AdvReac Type Severity Reaction Status Date / Time No Known Allergies Allergy Verified 07/09/15 13:52 Physical Exam Vitals: Vital Signs Temp Pulse Resp BP Pulse Ox 10/28/24 08:00 98.5 F 15 96 10/28/24 06:08 97.8 F 76 16 138/78 95 10/28/24 03:20 98.4 F 71 16 152/78 96 10/28/24 01:39 98.4 F 70 16 132/86 91 L 10/27/24 23:52 98.3 F 65 16 137/79 93 L 10/27/24 23:32 98.2 F 59 L 16 140/78 93 L 10/27/24 23:22 98.6 F 74 18 126/91 99 10/27/24 23:12 98.6 F 71 16 134/73 91 L 10/27/24 22:26 80 16 150/87 97 10/27/24 20:58 98.2 F 80 18 150/90 93 L 10/27/24 20:38 98.0 F 78 16 142/72 93 L 10/27/24 20:28 97.9 F 70 16 140/76 95 10/27/24 20:14 65 18 143/86 96 10/27/24 18:57 69 20 125/68 96 10/27/24 17:53 98.2 F 84 18 121/70 97 Intake and Output 10/27/24 10/28/24 10/28/24 22:59 06:59 14:59 Intake Total 0 620 Balance 0 620 Intake: Blood Product 0 620 Rc Pheresis 2 As3 Unit 0 310 [id number] Rc Pheresis As-3 Unit 310 [id number] Other: Voiding Method Toilet # Voids 1 Weight 74.389 kg 74.389 kg Head normocephalic Neck supple Lungs clear to auscultation bilaterally no wheezing or crackles Heart regular rate and rhythm S1-S2, no rub or gallop Abdomen is soft nontender nondistended positive bowel sounds no hepatosplenomegaly Extremities no edema Neuro alert and orientated to 3 Results CBC & Chem 7: 10/28/24 05:41 10/27/24 18:22 Labs: Abnormal Lab Results - Last 24 Hours (Table) 10/27/24 10/27/24 10/27/24 Range/Units 18:05 18:22 18:22 WBC 3.58 L (4.50-10.00) 10*3/uL RBC 3.24 L (4.10-5.20) 10*6/uL Hgb 6.6 L* (12.0-15.0) g/dL Hct 24.1 L (37.2-46.3) % MCV 74.4 L (80.0-97.0) fL MCH 20.4 L (27.0-32.0) pg MCHC 27.4 L (32.0-37.0) g/dL MPV 9.1 L (9.5-12.2) fL Lymphocytes # 0.70 L (0.90-5.00) 10*3/uL PT 21.3 H (10.0-12.5) sec INR 2.1 H (<1.2) Total Protein (6.3-8.2) g/dL Crossmatch See Detail 10/27/24 10/28/24 10/28/24 Range/Units 18:22 05:41 11:02 WBC 3.66 L (4.50-10.00) 10*3/uL RBC 3.50 L (4.10-5.20) 10*6/uL Hgb 7.8 L (12.0-15.0) g/dL Hct 26.9 L (37.2-46.3) % MCV 76.9 L (80.0-97.0) fL MCH 22.3 L (27.0-32.0) pg MCHC 29.0 L (32.0-37.0) g/dL MPV 9.2 L (9.5-12.2) fL Lymphocytes # 0.85 L (0.90-5.00) 10*3/uL PT 20.4 H (10.0-12.5) sec INR 2.0 H (<1.2) Total Protein 6.2 L (6.3-8.2) g/dL Crossmatch Assessment and Plan Assessment: 1. Anemia hemoglobin 6.6 status post 2 units of PRBCs 2. History of atrial fibrillation maintained on Coumadin 3. History of previous anemia 4. History of COPD 5. History of GERD 6. History of hyperlipidemia 7. History of hypothyroidism 8. History of previous cardiac ablation DVT prophylaxis Coumadin. GI prophylax Protonix Hematology and surgical services consulted Repeat labs ordered Time with Patient: Greater than 30
[2024-10-28] MEDS: [UNRECOGNIZED DRUG - OTHER] PO SCH (12:14)
[2024-10-28] MEDS: PROPAFENONE PO SCH (12:14)
[2024-10-28] MEDS: SODIUM FERRIC GLUCONAT-SUCROSE 125 MG in SODIUM CHLORIDE 0.9% 100 ML IVPB SCH (12:21)
[2024-10-28] MEDS: SYMBICORT 160-4.5 MCG INHALER INHALATION SCH (20:08)
[2024-10-28 20:19] LABS: Vitamin B12 387.0 pg/mL (200.0-944.0)
--- NOTE | 2024-10-28 20:29 | P.CONS ---
History of Present Illness - Reason for Consult Consult date: 10/28/24 anemia Requesting physician: Delon Allen - Chief Complaint abnormal labs - History of Present Illness Patient is a 79-year-old female that presented to emergency room for abnormal labs with low hemoglob that was found in outpatient lab work. Patient reports history of iron deficiency anemia, and has been on oral iron in the past. She believes her last colonoscopy was approximately [address] Cates. She has never underwent EGD. Of note patient is on Coumadin for history of atrial fibrillation. Last dose of Coumadin was 2 days ago. Upon admit hemoglobin noted at 6.6, MCV 74.4. Platelets 209,000. Patient was transfused 2 units PRBCs, repeat hemoglobin 7.8. She denies any episodes of acute bleeding, rectal bleeding, melena, hematuria, and vaginal bleeding. Upon trending labs there is been a mild anemia noted since 2016. More recently hemoglobin 8-9 range. Iron studies from 07/21/2024 showed iron saturation 2.65%, ferritin 14.5. Review of Systems 10 point ROS is negative except as stated in the HPI Past Medical History Past Medical History: Atrial Fibrillation, COPD, GERD/Reflux, Hyperlipidemia, Sleep Apnea/CPAP/BIPAP, Thyroid Disorder Additional Past Medical History / Comment(s): Restless leg syndrome. RESPIRATORY INFECTION ON AND OFF SINCE - 3 COURSES OF ANTIBIOTICS AND STEROIDS History of Any Multi-Drug Resistant Organisms: None Reported Past Surgical History: Cardiac Ablation, Heart Catheterization, Hernia Repair, Tonsillectomy Additional Past Surgical History / Comment(s): colonoscopy Past Anesthesia/Blood Transfusion Reactions: No Reported Reaction Past Psychological History: No Psychological Hx Reported Smoking Status: Former smoker Past Alcohol Use History: Rare Additional Past Alcohol Use History / Comment(s): quit [id number] Past Drug Use History: None Reported - Past Family History Father Family Medical History: Cancer, Coronary Artery Disease (CAD) Mother Family Medical History: Cancer, Coronary Artery Disease (CAD) Additional Family Medical History / Comment(s): lung problems Medications and Allergies Home Medications Medication Instructions Recorded Confirmed Type Budesonide-Formot 160-4.5 Mcg 2 puff INHALATION RT-BID 06/02/14 10/27/24 History [Symbicort 160-4.5 Mcg Inhaler] Simvastatin [Zocor] 40 mg PO HS 06/02/14 10/27/24 History Albuterol Inhaler [Ventolin Hfa 2 puff INHALATION RT-Q4H PRN 10/27/24 10/27/24 History Inhaler] Bumetanide [Bumex] 2 mg PO DIRECTED 10/27/24 10/27/24 History Gabapentin [Neurontin] 300 mg PO HS 10/27/24 10/27/24 History Levothyroxine Sodium [Synthroid] 150 mcg PO DAILY 10/27/24 10/27/24 History Pantoprazole [Protonix] 40 mg PO DAILY 10/27/24 10/27/24 History Propafenone HCl [Rythmol ER] 325 mg PO Q12H 10/27/24 10/27/24 History Spironolactone [Aldactone] 25 mg PO DAILY 10/27/24 10/27/24 History Warfarin [Coumadin] 2.5 mg PO HS 10/27/24 10/27/24 History rOPINIRole HCL [Requip] 2 mg PO TID 10/27/24 10/27/24 History Allergies Allergy/AdvReac Type Severity Reaction Status Date / Time No Known Allergies Allergy Verified 07/09/15 13:52 Physical Exam Vitals: Vital Signs Temp Pulse Resp BP Pulse Ox 10/28/24 08:00 98.5 F 15 96 10/28/24 06:08 97.8 F 76 16 138/78 95 10/28/24 03:20 98.4 F 71 16 152/78 96 10/28/24 01:39 98.4 F 70 16 132/86 91 L 10/27/24 23:52 98.3 F 65 16 137/79 93 L 10/27/24 23:32 98.2 F 59 L 16 140/78 93 L 10/27/24 23:22 98.6 F 74 18 126/91 99 10/27/24 23:12 98.6 F 71 16 134/73 91 L 10/27/24 22:26 80 16 150/87 97 10/27/24 20:58 98.2 F 80 18 150/90 93 L 10/27/24 20:38 98.0 F 78 16 142/72 93 L 10/27/24 20:28 97.9 F 70 16 140/76 95 10/27/24 20:14 65 18 143/86 96 10/27/24 18:57 69 20 125/68 96 10/27/24 17:53 98.2 F 84 18 121/70 97 Intake and Output 10/27/24 10/28/24 10/28/24 22:59 06:59 14:59 Intake Total 0 620 Balance 0 620 Intake: Blood Product 0 620 Rc Pheresis 2 As3 Unit 0 310 [id number] Rc Pheresis As-3 Unit 310 [id number] Other: Voiding Method Toilet # Voids 1 Weight 74.389 kg 74.389 kg - Constitutional General appearance: average body habitus, no acute distress - EENT Eyes: anicteric sclerae, EOMI ENT: hearing grossly normal - Respiratory Respiratory: bilateral: wheezing - Cardiovascular irregular - Gastrointestinal breathing is even and unlabored - Integumentary Integumentary: no cyanotic, no jaundiced - Psychiatric Psychiatric: A&O x's 3 Results CBC & Chem 7: 10/28/24 05:41 10/27/24 18:22 Labs: Abnormal Lab Results - Last 24 Hours (Table) 10/27/24 10/27/24 10/27/24 Range/Units 18:05 18:22 18:22 WBC 3.58 L (4.50-10.00) 10*3/uL RBC 3.24 L (4.10-5.20) 10*6/uL Hgb 6.6 L* (12.0-15.0) g/dL Hct 24.1 L (37.2-46.3) % MCV 74.4 L (80.0-97.0) fL MCH 20.4 L (27.0-32.0) pg MCHC 27.4 L (32.0-37.0) g/dL MPV 9.1 L (9.5-12.2) fL Lymphocytes # 0.70 L (0.90-5.00) 10*3/uL PT 21.3 H (10.0-12.5) sec INR 2.1 H (<1.2) Total Protein (6.3-8.2) g/dL Crossmatch See Detail 10/27/24 10/28/24 Range/Units 18:22 05:41 WBC 3.66 L (4.50-10.00) 10*3/uL RBC 3.50 L (4.10-5.20) 10*6/uL Hgb 7.8 L (12.0-15.0) g/dL Hct 26.9 L (37.2-46.3) % MCV 76.9 L (80.0-97.0) fL MCH 22.3 L (27.0-32.0) pg MCHC 29.0 L (32.0-37.0) g/dL MPV 9.2 L (9.5-12.2) fL Lymphocytes # 0.85 L (0.90-5.00) 10*3/uL PT (10.0-12.5) sec INR (<1.2) Total Protein 6.2 L (6.3-8.2) g/dL Crossmatch Assessment and Plan (1) Anemia Current Visit: Yes Status: Acute Code(s): D64.9 - ANEMIA, UNSPECIFIED SNOMED Code(s): 172550638 Plan: Microcytic anemia: -Upon admit, hemoglobin noted at 6.6, MCV 74.4. Platelets 209,000. Patient was transfused 2 units PRBCs, repeat hemoglobin 7.8. She denies any episodes of acute bleeding, rectal bleeding, melena, hematuria, and vaginal bleeding. Last colonoscopy was approximately [address] Cates. She has never underwent EGD. Of note patient is on Coumadin for history of atrial f ibrillation. Last dose of Coumadin was 2 days ago. -Upon trending labs there has been mild anemia noted since 2016. More recently hemoglobin 8-9 range. Iron studies from 07/21/2024 showed iron saturation 2.65%, ferritin 14.5. -Coumadin has been held. Coags pending -Nutritional studies ordered, and parenteral iron started -General surgery consulted for endoscopic evaluation -Continue to monitor CBC, transfuse for hgb <7 or if sympromatic
[2024-10-28 20:39] LABS: Ferritin 10.8 ng/mL (10.0-291.0)
[2024-10-28] MEDS ORDERED: WARFARIN 2.5 MG TAB PO SCH (21:00)
[2024-10-28 21:10] LABS: Iron 121.0 UG/DL (50-170); Total Iron Binding Capacity 484.0 UG/DL (228-460)
[2024-10-28] MEDS: ATORVASTATIN 20 MG TAB PO SCH (21:33)
[2024-10-28] MEDS: GABAPENTIN 300 MG CAP PO SCH (21:33)
[2024-10-29 07:00] LABS: Basophils # (A) 0.02 10*3/uL (0.00-0.10); Basophils % (A) 0.4 %; Eosinophils # (A) 0.20 10*3/uL (0.04-0.35); Eosinophils % (A) 4.4 %; HCT 29.8 % (37.2-46.3); HGB 8.7 g/dL (12.0-15.0); Lymphocytes # (A) 0.88 10*3/uL (0.90-5.00); Lymphocytes % (A) 19.4 %; MCH 22.1 pg (27.0-32.0); MCHC 29.2 g/dL (32.0-37.0); MCV 75.6 fL (80.0-97.0); Monocytes # (A) 0.44 10*3/uL (0.20-1.00); Monocytes % (A) 9.7 %; Neutrophils # (A) 2.99 10*3/uL (1.80-7.70); Neutrophils % (A) 65.9 %; Platelet Count 302 10*3/uL (140-440); RBC 3.94 10*6/uL (4.10-5.20); RDW 17.7 % (11.5-14.5); WBC 4.54 10*3/uL (4.50-10.00)
[2024-10-29 07:12] LABS: ALT 11 U/L (4-34); AST 20 U/L (14-36); African American GFR (CKD) >90 (>60 ml/min/1.73 sqM); Albumin 3.8 g/dL (3.5-5.0); Alkaline Phosphatase 60 U/L (38-126); Anion Gap 6 mmol/L; Blood Urea Nitrogen 12 mg/dL (7-17); Calcium 9.1 mg/dL (8.4-10.2); Carbon Dioxide 33 mmol/L (22-30); Chloride 101 mmol/L (98-107); Glucose 90 mg/dL (74-99); Non-African American GFR(CKD) 87 (>60 ml/min/1.73 sqM); Potassium 3.4 mmol/L (3.5-5.1); Sodium 140 mmol/L (137-145); Total Protein 5.9 g/dL (6.3-8.2)
[2024-10-29 07:50] LABS: INR 1.7 (<1.2); Prothrombin Time 17.1 sec (10.0-12.5)
[2024-10-29] MEDS: [UNRECOGNIZED DRUG - OTHER] PO SCH (07:51)
[2024-10-29] MEDS: PROPAFENONE PO SCH (07:51)
[2024-10-29 08:08] VITALS: BP 98/66; PULSE 76; RESP 17; TEMP 98.3
[2024-10-29] MEDS: SPIRONOLACTONE 25 MG TAB PO SCH (08:22)
[2024-10-29] MEDS: PANTOPRAZOLE 40 MG TABLET PO SCH (08:24)
--- NOTE | 2024-10-29 09:19 | P.HPIM ---
History of Present Illness H&P Date: 10/28/24 Nargis Smyth, is a 79-year-old female who presented to [facility] emergency room with a chief complaint of generalized fatigue and weakness Upon arrival patient was found to have a hemoglobin of 6.6. Patient denies any signs of bleeding. But is on Coumadin for atrial fibrillation additional medical history includes previous episode of anemia, COPD, GERD, hyperlipidemia, sleep apnea, restless leg syndrome and ex-smoker. Lab work upon arrival showing white blood cell 3.58, hemoglobin 6.6, platelet count 299, INR 2.1, creatinine 0.59 and bun 15. Patient denies any chest pain or shortness of breath. Patient denies any signs of bleeding. Patient denies nausea vomiting or diarrhea. Is any urinary burning or frequency. At this time patient will be admitted 2 units of PRBCs have been ordered. Repeat hemoglobin 7.8. Hematology and GI services have been consulted. Awaiting further recommendations. Current vital signs temp 98.5, heart 76, respiratory rate 16, blood pressure 138/78 with pulse ox of 96% on room air Past Medical History Past Medical History: Atrial Fibrillation, COPD, GERD/Reflux, Hyperlipidemia, Sleep Apnea/CPAP/BIPAP, Thyroid Disorder Additional Past Medical History / Comment(s): Restless leg syndrome. RESPIRATORY INFECTION ON AND OFF SINCE THANKSGIVING- 3 COURSES OF ANTIBIOTICS AND STEROIDS History of Any Multi-Drug Resistant Organisms: None Reported Past Surgical History: Cardiac Ablation, Heart Catheterization, Hernia Repair, Tonsillectomy Additional Past Surgical History / Comment(s): colonoscopy Past Anesthesia/Blood Transfusion Reactions: No Reported Reaction Past Psychological History: No Psychological Hx Reported Smoking Status: Former smoker Past Alcohol Use History: Rare Additional Past Alcohol Use History / Comment(s): quit [id number] Past Drug Use History: None Reported - Past Family History Father Family Medical History: Cancer, Coronary Artery Disease (CAD) Mother Family Medical History: Cancer, Coronary Artery Disease (CAD) Additional Family Medical History / Comment(s): lung problems Medications and Allergies Home Medications Medication Instructions Recorded Confirmed Type Budesonide-Formot 160-4.5 Mcg 2 puff INHALATION RT-BID 06/02/14 10/27/24 History [Symbicort 160-4.5 Mcg Inhaler] Simvastatin [Zocor] 40 mg PO HS 06/02/14 10/27/24 History Albuterol Inhaler [Ventolin Hfa 2 puff INHALATION RT-Q4H PRN 10/27/24 10/27/24 History Inhaler] Bumetanide [Bumex] 2 mg PO DIRECTED 10/27/24 10/27/24 History Gabapentin [Neurontin] 300 mg PO HS 10/27/24 10/27/24 History Levothyroxine Sodium [Synthroid] 150 mcg PO DAILY 10/27/24 10/27/24 History Pantoprazole [Protonix] 40 mg PO DAILY 10/27/24 10/27/24 History Propafenone HCl [Rythmol ER] 325 mg PO Q12H 10/27/24 10/27/24 History Spironolactone [Aldactone] 25 mg PO DAILY 10/27/24 10/27/24 History Warfarin [Coumadin] 2.5 mg PO HS 10/27/24 10/27/24 History rOPINIRole HCL [Requip] 2 mg PO TID 10/27/24 10/27/24 History Allergies Allergy/AdvReac Type Severity Reaction Status Date / Time No Known Allergies Allergy Verified 07/09/15 13:52 Physical Exam Vitals: Vital Signs Temp Pulse Resp BP Pulse Ox 10/28/24 08:00 98.5 F 15 96 10/28/24 06:08 97.8 F 76 16 138/78 95 10/28/24 03:20 98.4 F 71 16 152/78 96 10/28/24 01:39 98.4 F 70 16 132/86 91 L 10/27/24 23:52 98.3 F 65 16 137/79 93 L 10/27/24 23:32 98.2 F 59 L 16 140/78 93 L 10/27/24 23:22 98.6 F 74 18 126/91 99 10/27/24 23:12 98.6 F 71 16 134/73 91 L 10/27/24 22:26 80 16 150/87 97 10/27/24 20:58 98.2 F 80 18 150/90 93 L 10/27/24 20:38 98.0 F 78 16 142/72 93 L 10/27/24 20:28 97.9 F 70 16 140/76 95 10/27/24 20:14 65 18 143/86 96 10/27/24 18:57 69 20 125/68 96 10/27/24 17:53 98.2 F 84 18 121/70 97 Intake and Output 10/27/24 10/28/24 10/28/24 22:59 06:59 14:59 Intake Total 0 620 Balance 0 620 Intake: Blood Product 0 620 Rc Pheresis 2 As3 Unit 0 310 [id number] Rc Pheresis As-3 Unit 310 [id number] Other: # Voids 1 Weight 74.389 kg 74.389 kg In general patient is alert and oriented x 3 in no distress HEENT head normocephalic and atraumatic Neck is supple no JVD no goiter no lymphadenopathy no carotid bruit Chest examination is clear to auscultation no crackles no wheezing Cardiac exam reveals regular heart sounds S1 and S2 no gallops no murmurs Abdomen is soft nontender no organomegaly with normal bowel sounds Extremity exam reveals no edema no cyanosis or clubbing Neurological examination reveals no gross focal deficits Results CBC & Chem 7: 10/29/24 06:44 10/29/24 06:44 Labs: Abnormal Lab Results - Last 24 Hours (Table) 10/27/24 10/27/24 10/27/24 Range/Units 18:05 18:22 18:22 WBC 3.58 L (4.50-10.00) 10*3/uL RBC 3.24 L (4.10-5.20) 10*6/uL Hgb 6.6 L* (12.0-15.0) g/dL Hct 24.1 L (37.2-46.3) % MCV 74.4 L (80.0-97.0) fL MCH 20.4 L (27.0-32.0) pg MCHC 27.4 L (32.0-37.0) g/dL MPV 9.1 L (9.5-12.2) fL Lymphocytes # 0.70 L (0.90-5.00) 10*3/uL PT 21.3 H (10.0-12.5) sec INR 2.1 H (<1.2) Total Protein (6.3-8.2) g/dL Crossmatch See Detail 10/27/24 10/28/24 Range/Units 18:22 05:41 WBC 3.66 L (4.50-10.00) 10*3/uL RBC 3.50 L (4.10-5.20) 10*6/uL Hgb 7.8 L (12.0-15.0) g/dL Hct 26.9 L (37.2-46.3) % MCV 76.9 L (80.0-97.0) fL MCH 22.3 L (27.0-32.0) pg MCHC 29.0 L (32.0-37.0) g/dL MPV 9.2 L (9.5-12.2) fL Lymphocytes # 0.85 L (0.90-5.00) 10*3/uL PT (10.0-12.5) sec INR (<1.2) Total Protein 6.2 L (6.3-8.2) g/dL Crossmatch Assessment and Plan Plan: Severe anemia, red blood cell transfusion ordered in the emergency room Underlying history of hypertension Underlying history of hyperlipidemia Underlying history of hypothyroidism Underlying history of atrial fibrillation maintained on Coumadin Underlying history of gastroesophageal reflux disease Underlying history of obstructive sleep apnea maintained on CPAP History of cardiac arrhythmia with previous history of cardiac ablation At this time patient was seen and examined Medications reviewed and reordered Patient received 2 units of red blood cell transfusion in the emergency room Hematology consult and GI consult requested Will follow closely
--- NOTE | 2024-10-29 10:56 | P.GSCN ---
History of Present Illness Consult date: 10/29/24 History of present illness: CHIEF COMPLAINT: Low outpatient hemoglobin HISTORY OF PRESENT ILLNESS: This is a 79-year-old female who presented to the ER due to a low outpatient hemoglobin. She reports her hemoglobin had been around 6.1 outpatient. On admission hemoglobin of 6.6. She did receive 2 units of blood and hemoglobin initially went to 7.8 and now 8.7. She denies any abdominal pain. Denies any blood in her stools or melanotic stools. Denies any nausea or vomiting. She is on Coumadin at home for her A-fib and INR therapeutic at 2.0. Patient reports that she is currently off of the Coumadin. She reports having prior episodes of anemia requiring blood transfusions. Again with no active bleeding. Last colonoscopy was about 5 years ago she reports having colon polyp removed. She has never had an EGD. Family history of a father with colon cancer. Surgical service consulted for anemia to rule out GI bleed. Patient seen and examined with Dr. Lo PAST MEDICAL HISTORY: Atrial Fibrillation, COPD, GERD/Reflux, Hyperlipidemia, Sleep Apnea/CPAP/BIPAP, Thyroid Disorder PAST SURGICAL HISTORY: Cardiac Ablation, Heart Catheterization, Hernia Repair, Tonsillectomy MEDICATIONS: See below ALLERGIES: See below SOCIAL HISTORY: No illicit drug use. REVIEW OF SYSTEMS: CONSTITUTIONAL: Denies fever or chills. HEENT: Denies blurred vision, vision changes, or eye pain. Denies hemoptysis CARDIOVASCULAR: Denies chest pain or pressure. RESPIRATORY: No shortness of breath. GASTROINTESTINAL: See HPI for pertinent findings HEMATOLOGIC: Denies bleeding disorders. GENITOURINARY: Denies any blood in urine or increased urinary frequency. SKIN: Denies pruitis. Denies rash. PHYSICAL EXAM: VITAL SIGNS: Reviewed GENERAL: Well-developed in no acute distress. HEENT: No sclera icterus. Extraocular movements grossly intact. Moist buccal mucosa. Head is atraumatic, normocephalic. No nasal drainage. ABDOMEN: Soft. Nondistended. Nontender NEUROLOGIC: Alert and oriented. Cranial nerves II through XII grossly intact. LABORATORY DATA: Hemoglobin 6.6 up to 8.7 after blood transfusion. August 2023 hemoglobin around 8.3 WBC 4.54 platelets 302 INR 1.7 sodium 140 potassium 3.4 creatinine 0.63 IMAGING: ASSESSMENT: 1. Anemia with no evidence of active bleeding. Status post blood transfusion PLAN: - Recommend outpatient endoscopies - Patient can be discharged from surgical standpoint - Recommend to hold Coumadin Physician [employer] Manufacturing Supervisor note has been reviewed by physician. Signing provider agrees with the documented findings, assessment, and plan of care. Past Medical History Past Medical History: Atrial Fibrillation, COPD, GERD/Reflux, Hyperlipidemia, Sleep Apnea/CPAP/BIPAP, Thyroid Disorder Additional Past Medical History / Comment(s): Restless leg syndrome. RESPIRATORY INFECTION ON AND OFF SINCE - 3 COURSES OF ANTIBIOTICS AND STEROIDS History of Any Multi-Drug Resistant Organisms: None Reported Past Surgical History: Cardiac Ablation, Heart Catheterization, Hernia Repair, Tonsillectomy Additional Past Surgical History / Comment(s): colonoscopy Past Anesthesia/Blood Transfusion Reactions: No Reported Reaction Past Psychological History: No Psychological Hx Reported Smoking Status: Former smoker Past Alcohol Use History: Rare Additional Past Alcohol Use History / Comment(s): quit [id number] Past Drug Use History: None Reported - Past Family History Father Family Medical History: Cancer, Coronary Artery Disease (CAD) Mother Family Medical History: Cancer, Coronary Artery Disease (CAD) Additional Family Medical History / Comment(s): lung problems Medications and Allergies Home Medications Medication Instructions Recorded Confirmed Type Budesonide-Formot 160-4.5 Mcg 2 puff INHALATION RT-BID 06/02/14 10/27/24 History [Symbicort 160-4.5 Mcg Inhaler] Simvastatin [Zocor] 40 mg PO HS 06/02/14 10/27/24 History Albuterol Inhaler [Ventolin Hfa 2 puff INHALATION RT-Q4H PRN 10/27/24 10/27/24 History Inhaler] Bumetanide [Bumex] 2 mg PO DAILY 10/27/24 10/29/24 History Gabapentin [Neurontin] 300 mg PO HS 10/27/24 10/27/24 History Pantoprazole [Protonix] 40 mg PO DAILY 10/27/24 10/27/24 History Propafenone HCl [Rythmol ER] 325 mg PO Q12H 10/27/24 10/27/24 History Spironolactone [Aldactone] 25 mg PO DAILY 10/27/24 10/27/24 History Warfarin [Coumadin] 2.5 mg PO HS 10/27/24 10/27/24 History rOPINIRole HCL [Requip] 2 mg PO TID 10/27/24 10/27/24 History Levothyroxine Sodium [Synthroid] 175 mcg PO DAILY 10/29/24 10/29/24 History Allergies Allergy/AdvReac Type Severity Reaction Status Date / Time No Known Allergies Allergy Verified 07/09/15 13:52 Surgical - Exam Vital Signs Temp Pulse Resp BP Pulse Ox 98.2 F 84 18 121/70 97 10/27/24 17:53 10/27/24 17:53 10/27/24 17:53 10/27/24 17:53 10/27/24 17:53 Results - Labs 10/29/24 06:44 10/29/24 06:44 Abnormal Lab Results - Last 24 Hours (Table) 10/27/24 10/28/24 10/29/24 Range/Units 11:02 11:02 06:44 RBC 3.94 L (4.10-5.20) 10*6/uL Hgb 8.7 L (12.0-15.0) g/dL Hct 29.8 L (37.2-46.3) % MCV 75.6 L (80.0-97.0) fL MCH 22.1 L (27.0-32.0) pg MCHC 29.2 L (32.0-37.0) g/dL MPV 9.3 L (9.5-12.2) fL Lymphocytes # 0.88 L (0.90-5.00) 10*3/uL PT 20.4 H (10.0-12.5) sec INR 2.0 H (<1.2) Potassium (3.5-5.1) mmol/L Carbon Dioxide (22-30) mmol/L TIBC 484 H (228-460) UG/DL Total Protein (6.3-8.2) g/dL 10/29/24 10/29/24 Range/Units 06:44 06:44 RBC (4.10-5.20) 10*6/uL Hgb (12.0-15.0) g/dL Hct (37.2-46.3) % MCV (80.0-97.0) fL MCH (27.0-32.0) pg MCHC (32.0-37.0) g/dL MPV (9.5-12.2) fL Lymphocytes # (0.90-5.00) 10*3/uL PT 17.1 H (10.0-12.5) sec INR 1.7 H (<1.2) Potassium 3.4 L (3.5-5.1) mmol/L Carbon Dioxide 33 H (22-30) mmol/L TIBC (228-460) UG/DL Total Protein 5.9 L (6.3-8.2) g/dL Diabetes panel 10/29/24 Range/Units 06:44 Sodium 140 (137-145) mmol/L Potassium 3.4 L (3.5-5.1) mmol/L Chloride 101 (98-107) mmol/L Carbon Dioxide 33 H (22-30) mmol/L BUN 12 (7-17) mg/dL Creatinine 0.63 (0.52-1.04) mg/dL Glucose 90 (74-99) mg/dL Calcium 9.1 (8.4-10.2) mg/dL AST 20 (14-36) U/L ALT 11 (4-34) U/L Alkaline Phosphatase 60 (38-126) U/L Total Protein 5.9 L (6.3-8.2) g/dL Albumin 3.8 (3.5-5.0) g/dL Calcium panel 10/29/24 Range/Units 06:44 Calcium 9.1 (8.4-10.2) mg/dL Albumin 3.8 (3.5-5.0) g/dL Pituitary panel 10/29/24 Range/Units 06:44 Sodium 140 (137-145) mmol/L Potassium 3.4 L (3.5-5.1) mmol/L Chloride 101 (98-107) mmol/L Carbon Dioxide 33 H (22-30) mmol/L BUN 12 (7-17) mg/dL Creatinine 0.63 (0.52-1.04) mg/dL Glucose 90 (74-99) mg/dL Calcium 9.1 (8.4-10.2) mg/dL Adrenal panel 10/29/24 Range/Units 06:44 Sodium 140 (137-145) mmol/L Potassium 3.4 L (3.5-5.1) mmol/L Chloride 101 (98-107) mmol/L Carbon Dioxide 33 H (22-30) mmol/L BUN 12 (7-17) mg/dL Creatinine 0.63 (0.52-1.04) mg/dL Glucose 90 (74-99) mg/dL Calcium 9.1 (8.4-10.2) mg/dL Total Bilirubin 0.5 (0.2-1.3) mg/dL AST 20 (14-36) U/L ALT 11 (4-34) U/L Alkaline Phosphatase 60 (38-126) U/L Total Protein 5.9 L (6.3-8.2) g/dL Albumin 3.8 (3.5-5.0) g/dL
--- NOTE | 2024-10-29 13:26 | P.DS ---
Providers Date of admission: 10/27/24 23:53 Expected date of discharge: 10/29/24 Attending physician: Luke Srinivasan Consults: 10/27/24 20:03 Consult Physician Routine Consulting Provider: Yo Knutson Consult Reason/Comments: known Do you want consulting provider notified?: Yes 10/28/24 09:59 Consult Physician Routine Consulting Provider: Tammie Koroma Consult Reason/Comments: Anemia Do you want consulting provider notified?: Yes 10/28/24 10:57 Consult Physician Routine Consulting Provider: Rio Cates Consult Reason/Comments: anemia, r/o GI bleed Do you want consulting provider notified?: Yes Primary care physician: Luke Zarina [facility] Course: Diagnosis on discharge: Severe anemia, red blood cell transfusion ordered in the emergency room Underlying history of hypertension Underlying history of hyperlipidemia Underlying history of hypothyroidism Underlying history of atrial fibrillation maintained on Coumadin Underlying history of gastroesophageal reflux disease Underlying history of obstructive sleep apnea maintained on CPAP History of cardiac arrhythmia with previous history of cardiac ablation Hospital course: Nargis Smyth, is a 79-year-old female who presented to [facility] emergency room with a chief complaint of generalized fatigue and weakness Upon arrival patient was found to have a hemoglobin of 6.6. Patient denies any signs of bleeding. But is on Coumadin for atrial fibrillation additional medical history includes previous episode of anemia, COPD, GERD, hyperlipidemia, sleep apnea, restless leg syndrome and ex-smoker. Lab work upon arrival showing white blood cell 3.58, hemoglobin 6.6, platelet count 299, INR 2.1, creatinine 0.59 and bun 15. Patient denies any chest pain or shortness of breath. Patient denies any signs of bleeding. Patient denies nausea vomiting or diarrhea. Is any urinary burning or frequency. At this time patient will be admitted 2 units of PRBCs have been ordered. Repeat hemoglobin 7.8. Hematology and GI services have been consulted. Awaiting further recommendations. Current vital signs temp 98.5, heart 76, respiratory rate 16, blood pressure 138/78 with pulse ox of 96% on room air On 10/29/2021 patient was seen and examined on the medical floor she is alert and oriented x 3 in no apparent distress she received IV iron infusions during this admission patient also had 2 units of red blood cell transfusion hemoglobin today is 8.7 patient will need EGD and colonoscopy. Her admission was not approved by her insurance she will be discharged to home today. Will arrange for EGD and colonoscopy as outpatient. Patient Condition at Discharge: Fair Plan - Discharge Summary Discharge Rx Participant: Yes New Discharge Prescriptions: Continue Budesonide-Formot 160-4.5 Mcg [Symbicort 160-4.5 Mcg Inhaler] 2 puff INH ALATION RT-BID Simvastatin [Zocor] 40 mg PO HS Spironolactone [Aldactone] 25 mg PO DAILY Albuterol Inhaler [Ventolin Hfa Inhaler] 2 puff INHALATION RT-Q4H PRN PRN Reason: Shortness Of Breath Propafenone HCl [Rythmol ER] 325 mg PO Q12H Bumetanide [BUMEX] 2 mg PO DAILY Levothyroxine Sodium [Synthroid] 175 mcg PO DAILY rOPINIRole HCL [Requip] 2 mg PO TID Warfarin [Coumadin] 2.5 mg PO HS Pantoprazole [Protonix] 40 mg PO DAILY Gabapentin [Neurontin] 300 mg PO HS Discharge Medication List Budesonide-Formot 160-4.5 Mcg [Symbicort 160-4.5 Mcg Inhaler] 2 puff INHALATION RT-BID 06/02/14 [History] Simvastatin [Zocor] 40 mg PO HS 06/02/14 [History] Albuterol Inhaler [Ventolin Hfa Inhaler] 2 puff INHALATION RT-Q4H PRN 10/27/24 [History] Bumetanide [BUMEX] 2 mg PO DAILY 10/27/24 [History] Gabapentin [Neurontin] 300 mg PO HS 10/27/24 [History] Pantoprazole [Protonix] 40 mg PO DAILY 10/27/24 [History] Propafenone HCl [Rythmol ER] 325 mg PO Q12H 10/27/24 [History] Spironolactone [Aldactone] 25 mg PO DAILY 10/27/24 [History] Warfarin [Coumadin] 2.5 mg PO HS 10/27/24 [History] rOPINIRole HCL [Requip] 2 mg PO TID 10/27/24 [History] Levothyroxine Sodium [Synthroid] 175 mcg PO DAILY 10/29/24 [History] Follow up Appointment(s)/Referral(s): Luke Srinivasan MD [Primary Care Provider] - 1-2 days Yuriy Lo MD [STAFF PHYSICIAN] - 1 Week
== END 2024-10-29 15:07 | disposition home or self-care (01) ==
LOC: EC 17:38 → INTOOBSV 23:53 → 1SOBS 23:53 → UNDODISIN 10-29 15:07
PROVIDERS: ADMIT Internal Medicine; ATTEND Internal Medicine
PROC: 30233N1 Transfusion of Nonautologous Red Blood Cells into Peripheral Vein, Percutaneous Approach (ICD-10-PCS; principal; 2024-10-27)
DX: D64.9 Anemia, unspecified (principal); E03.9 Hypothyroidism, unspecified; I10 Essential (primary) hypertension; E78.5 Hyperlipidemia, unspecified; G25.81 Restless legs syndrome; I48.91 Unspecified atrial fibrillation; J44.9 Chronic obstructive pulmonary disease, unspecified; G47.33 Obstructive sleep apnea (adult) (pediatric); K21.9 Gastro-esophageal reflux disease without esophagitis; Z79.01 Long term (current) use of anticoagulants; Z79.51 Long term (current) use of inhaled steroids; Z79.890 Hormone replacement therapy; Z79.899 Other long term (current) drug therapy; Z87.891 Personal history of nicotine dependence; Z86.0100 Personal history of colon polyps, unspecified; Z86.2 Personal history of diseases of the blood and blood-forming organs and certain disorders involving the immune mechanism
CPT/HCPCS: 96365; 96366 ×2; 96375; 36430; 99285; 36415; 94640; 93005; 86900; 86901; 83921; 82747; 80053 ×2; 82607; 82728; 83540; 83550; 83735; 84100; 84484; 85025 ×3; 85610 ×3; 86850; 86920; G0378 ×2; P9016; J2916 ×2; J2470

== ENCOUNTER 2024-11-05 19:47 | Outpatient (CLI) | payer MEDICARE ==
--- NOTE | 2024-11-07 13:23 | P.PCN ---
Description of Procedure: POLYSOMNOGRAPHY REPORT PROCEDURE(S)/DATE(S): Polysomnography 11/05/2024 CLINICAL: Patient has been seen in the sleep center for evaluation of obstructive sleep apnea-hypopnea syndrome. Please see my consultation. Sleep study has been done for evaluation of patient breathing during the sleep. PROCEDURE: The standard montage for clinical polysomnography included the electroencephalogram, the electrooculogram, the mentalis surface electromyography and Lead II cardiography. The respiratory battery consisted of measurements of nasal/buccal air flow, pressure transducer measurements from nose, thoracic and/or abdominal effort and intercostal surface electromyography. Video monitoring has been done to check for any parasomnia events. Nocturnal oxyhemoglobin saturations were obtained by finger oximetry. Step-gautam titration with positive airway pressure was utilized to control the respiratory events, if necessary. RESULTS: During the diagnostic sleep study sleep efficiency was high at 98.1%. Latency to sleep onset was in short range 7.0 min. Sleep architecture showed s tage NI slightly short 4.9%, Delta sleep was short 0.8%, REM sleep was absent 0%. Respiratory channel showed 0 obstructive apneas, 0 mixed apneas, 0 central apneas, 278 hypopneas with lowest oxygen level 73%. Total apnea hypopnea index was 43.8. Heart rate was in the range between 69 and 80, average 75. EMG showed 0 periodic limb movements per hour with 0 80 micro-arousals per hour. IMPRESSIONS: 1. Severe obstructive sleep apnea hypopnea syndrome. 2. No significant periodic limb movements have been documented. Please see other impressions from consultation PLAN: 1. The patient will have PAP titration for correction of respiratory abnormalities during the sleep. 2. Losing weight program. 3. Sleep hygiene with regular time in bed for at least 7-1/2 hours. 4. No driving if feeling sleepiness. Thank you very much for allowing me to participate in the management of your patient. Sincerely, Pankaj Sandhu MD, PhD, FAASM. Diplomat of [employer] [employer], Sleep Medicine Board by [employer] [facility] [place] cc: Luke Srinivasan MD
== END 2024-11-06 07:19 | disposition home or self-care (01) ==
LOC: 3 N SLEEP 19:47
PROVIDERS: ATTEND Internal Medicine
DX: G47.33 Obstructive sleep apnea (adult) (pediatric) (principal); Z87.891 Personal history of nicotine dependence
CPT/HCPCS: 95810